=== PATIENT | male | born 1950 | race Caucasian/White ===

== ENCOUNTER 2018-06-01 10:10 | Day surgery (SDC) | payer MEDICARE, OTHER, SELFPAY ==
[2018-06-01] MEDS: PROPARACAINE 0.5% OPHTH SOL 2 DROPS EYE-OP (11:55)
[2018-06-01 11:56] VITALS: BMI 23.7
[2018-06-01] MEDS: CATARACT EYE COMPOUND (10 DROPS/SYRINGE) 3 DROPS EYE-OP (12:00)
[2018-06-01 12:07] VITALS: BP 118/77; PULSE 73; RESP 16; TEMP 36.7; O2SAT 95
--- NOTE | 2018-06-01 14:34 | PM.PREOP ---
Pre-operative Note Interval Note History & Physical reviewed/Exam performed by Physician: Yes Changes to H&P: No
[2018-06-01] MEDS: LIDOCAINE JELLY 2% 5 ML 1 APPLIC TOP (15:43)
[2018-06-01] MEDS: CHONDROIDTIN/SOD HYALURONATE 1.05 ML SYRINGE INTRAOCULA (15:43)
[2018-06-01] MEDS: MOXIFLOXACIN OPHTH DROPS 3 ML BOTTLE 2 DROPS INJ (15:43)
[2018-06-01] MEDS: BALANCED SALT IRRIG SOLN NO.2 500 ML, EPINEPHrine 1 MG IRR (15:44)
[2018-06-01] MEDS: PHENYLEPHRINE/LIDOCAINE VIAL (OR) 0.2 ML EYE-OP (15:44)
--- NOTE | 2018-06-01 15:59 | P.OP_ITS ---
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 The correct patient, surgical site and lens were confirmed. 0.5 % tetracaine drops were pl aced in the right eye. The patient was prepped and draped in the typical sterile manner. A lid speculum was placed in the eye. 2% lidocaine was placed on the eye. A paracentesis port was created with a side-port blade. 0.1 mL of 1% preservative free lidocaine with phenylephrine was injected into the anterior chamber. Viscoelastic was injected into the anterior chamber. A 2.6mm keratome was used to create a clear corneal temporal incision. Cystotome and Utrata forceps were used to create a continuous curvilinear capsulorrhexis. Balanced salt solution was used to hydrodissect the nucleus. Phacoemulsification was used to remove the lens. The capsular bag was inflated with viscoelastic. A Andres ZBOO +20.0D lens was inserted into the capsule. Viscoelastic was removed and the wound hydrated. The wound was found to be leak free and the eye was assessed to be at normal physiologic pressure. 0.1mL Vigamox was injected into the anterior chamber. The lid speculum was removed and the patient left the operating room in excellent condition. Complications: none Condition: stable Disposition: same day surgery
[2018-06-01 16:05] VITALS: BP 110/81; PULSE 77; RESP 15; TEMP 36.2; O2SAT 95
== END 2018-06-01 16:20 ==
LOC: OR 10:13
PROVIDERS: Family Provider Specialist; PCP Specialist; Visit Provider Ophthalmology
DX: H25.11 Age-related nuclear cataract, right eye (principal); J45.909 Unspecified asthma, uncomplicated
CPT/HCPCS: J0171; J2250; J3010

== ENCOUNTER 2018-06-15 08:25 | Day surgery (SDC) | payer MEDICARE, OTHER, SELFPAY ==
[2018-06-15 09:18] VITALS: BP 111/82; PULSE 68; RESP 18; TEMP 36.2; O2SAT 96; BMI 24.0
[2018-06-15] MEDS: PROPARACAINE 0.5% OPHTH SOL 2 DROPS EYE-OP (09:23)
[2018-06-15] MEDS: CATARACT EYE COMPOUND (10 DROPS/SYRINGE) 3 DROPS EYE-OP (09:29)
--- NOTE | 2018-06-15 09:43 | PM.PREOP ---
Pre-operative Note Interval Note History & Physical reviewed/Exam performed by Physician: Yes Changes to H&P: No
[2018-06-15] MEDS: CHONDROIDTIN/SOD HYALURONATE 1.05 ML SYRINGE INTRAOCULA (10:07)
[2018-06-15] MEDS: MOXIFLOXACIN OPHTH DROPS 3 ML BOTTLE 2 DROPS INJ (10:07)
[2018-06-15] MEDS: PHENYLEPHRINE/LIDOCAINE VIAL (OR) 0.2 ML EYE-OP (10:07)
[2018-06-15] MEDS: TETRACAINE 0.5% OPHTH DROPS 4 ML 2 DROPS EYE-LEFT (10:08)
[2018-06-15] MEDS: BALANCED SALT IRRIG SOLN NO.2 15 ML IRR (10:08)
[2018-06-15] MEDS: BALANCED SALT IRRIG SOLN NO.2 500 ML, EPINEPHrine 1 MG IRR (10:09)
[2018-06-15] MEDS: LIDOCAINE 2% INJ SDV 5 ML INJ (10:09)
--- NOTE | 2018-06-15 10:41 | PM.OP.1 ---
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 The correct patient, surgical site and lens were confirmed. 0.5 % tetracaine drops were placed in the left eye. The patient was prepped and draped in the typical sterile manner. A lid speculum was placed in the eye. % lidocaine was placed on the eye. A paracentesis port was created with a side-port blade. 0.1 mL of 1% preservative free lidocaine with phenylephrine was injected into the anterior chamber. Viscoelastic was injected into the anterior chamber. A 2.6mm keratome was used to create a clear corneal temporal incision. Cystotome and Utrata forceps were used to create a continuous curvilinear capsulorrhexis. Balanced salt solution was used to hydrodissect the nucleus. Phacoemulsification was used to remove the lens. The capsular bag was inflated with viscoelastic. A Andres ZBOO +20.0D lens was inserted into the capsule. Viscoelastic was removed and the wound hydrated and a 10-0 nylon suture was placed. The wound was found to be leak free and the eye was assessed to be at normal physiologic pressure. 0.1mL Vigamox was injected into the anterior chamber. The lid speculum was removed and the patient left the operating room in excellent condition. Complications: none Condition: stable Disposition: same day surgery
[2018-06-15 10:47] VITALS: BP 109/78; PULSE 56; RESP 18; TEMP 36.2; O2SAT 98
== END 2018-06-15 10:52 ==
LOC: OR 08:27
PROVIDERS: PCP Specialist; Visit Provider Ophthalmology
DX: H25.812 Combined forms of age-related cataract, left eye (principal); J45.909 Unspecified asthma, uncomplicated
CPT/HCPCS: J0171; J2250; J3010